=== PATIENT | male | born 1955 | race Caucasian/White ===

== ENCOUNTER 2019-06-09 14:22 | Outpatient (CLI) | payer OTHER ==
--- NOTE | 2019-06-09 17:27 | MRI ---
MRI BRAIN AND INTERNAL AUDITORY CANALS WITH AND WITHOUT CONTRAST: 06/09/19 HISTORY: 63-year-old male with ICD-10: H90.3 sensorineural hearing loss of both ears. TECHNIQUE: Multiple sequences obtained in axial, sagittal, and coronal planes; both whole brain images and thin slices through the IAC's, pre and post IV injection of gadolinium-based contrast agent: 17 mL Multiha nce. FINDINGS: The ventricles are normal in size and configuration. There is no major intraaxial signal abnormality , restricted diffusion, abnormal intraaxial enhancement, mass, midline shift or any other mass effect , recent intraaxial hemorrhage, or extraaxial fluid collection. There is no abnormal enhancement, mass, or morphologic abnormality, involving the cerebellopontine an gles, 7th-8th nerve complexes, internal auditory canals, cochleae, vestibules, vestibular aqueducts, or semicircular canals. IMPRESSION: Normal. jn[] POS: [facility]
== END 2019-06-09 14:23 | disposition home or self-care (01) ==
LOC: BICMRI 14:22
PROVIDERS: ATTEND Student in an Organized Health Care Education/Training Program
DX: H90.3 Sensorineural hearing loss, bilateral (principal)
CPT/HCPCS: 70553; 82565

== ENCOUNTER 2023-01-08 11:18 | Outpatient (CLI) | payer MEDICARE, OTHER | END 2023-01-08 11:19 | disposition home or self-care (01) | LOC: EKG 11:18 | PROVIDERS: ATTEND Student in an Organized Health Care Education/Training Program | DX: R06.02 Shortness of breath (principal); Z82.49 Family history of ischemic heart disease and other diseases of the circulatory system | CPT/HCPCS: 93017 ==